=== PATIENT | female | born 1980 | race American Indian/Alaskan Native ===

== ENCOUNTER 2016-07-06 18:42 | Emergency (ER) | payer OTHER ==
[2016-07-06 19:38] VITALS: TEMP 98.6
--- NOTE | 2016-07-06 20:14 | C.PDOC ---
History Of Present Illness A 36 year old female presents to the emergency room with complaints of thick white vaginal discharge with vaginal itching for 1 week. Patient reports that she started using medications a few a days ago with no relief. Patient also notes an intermittent itchy patchy discoloration to the face over the past 2 weeks. Patient states that she use an anti-fungal cream without relief. Patient denies abdominal pain, dysuria, hematuria, frequency, back pain, incontinence, fever, chills, nausea, vomiting, diarrhea, or any other complaints. Time Seen by Provider: 07/06/16 19:43 Chief Complaint (Nursing): Female Genitourinary History Per: Patient History/Exam Limitations: no limitations Onset/Duration Of Symptoms: Other (1 week) Current Symptoms Are (Timing): Still Present Severity: Mild Quality Of Discomfort: denies: Gas Associated Symptoms: denies: Fever, Chills, Nausea, Vomiting, Back Pain, Urinary Symptoms Alleviating Factors: None Recent travel outside of the [place]: No Past Medical History Reviewed: Historical Data, Nursing Documentation, Vital Signs Vital Signs: Last Vital Signs Temp 98.6 F 07/06/16 19:35 Pulse 85 07/06/16 20:15 Resp 18 07/06/16 20:15 BP 134/78 07/06/16 20:15 Pulse Ox 98 07/06/16 21:02 - Medical History PMH: Anemia, Anxiety, Asthma, Depression, Deep Vein Thrombosis, HTN (per old chart but pt denies), Migraine, Pneumonia, Pulmonary Embolism Denies: Chronic Kidney Disease Surgical History: Appendectomy, Endoscopy - [facility] Procedures EXCIS LES TENDON SHEATH (03/31/13) LAPAROSCOPIC CECECTOMY (02/12/14) OTH INCIDENT APPENDECTOMY (02/12/14) Family History: States: Unknown Family Hx - Social History Hx Tobacco Use: No Hx Alcohol Use: Yes Hx Substance Use: No - Immunization History Hx Tetanus Toxoid Vaccination: No Hx Influenza Vaccination: Yes Hx Pneumococcal Vaccination: Yes (2012) Review Of Systems Except As Marked, All Systems Reviewed And Found Negative. Constitutional: Negative for: Fever, Chills Gastrointestinal: Negative for: Nausea, Vomiting, Abdominal Pain, Diarrhea Genitourinary: Positive for: Vaginal Discharge, Other (Vaginal itching). Negative for: Dysuria, Frequency, Incontinence, Hematuria Musculoskeletal: Negative for: Back Pain Skin: Positive for: Other (Itchy patchy discoloration to the face) Physical Exam - Physical Exam Appears: Well, Non-toxic Skin: No Normal Color (Scattered hyperpigmented patches, noticed around upper lip, eyebrow, and left cheek.) Eye(s): bilateral: Normal Inspection, PERRL Respiratory: No Stridor, No Wheezing Gastrointestinal/Abdominal: Soft, No Tenderness, No Guarding, No Rebound Back: No CVA Tenderness, No Vertebral Tenderness Pelvic: Vaginal Discharge (Thick white discharge at vaginal vault.), No Cervical Motion Tenderness, No Adnexal Tenderness, Other ( Vulvar erythema and irritation.) Extremity: Normal ROM, No Tenderness Neurological/Psych: Oriented x3, Normal Speech, Normal Motor, Normal Sensation ED Course And Treatment O2 Sat by Pulse Oximetry: 98 Medical Decision Making Medical Decision Making: Impression: A 36 year old female with thick white vaginal discharge and vaginal itching. Thick white vaginal discharge and scattered hyper-pigmented patches found on PE. Progress Notes: Patient was given prescriptions for Diflucan and a cream. Patient instructed to take medication as directed and follow up with CHANGE MANAGEMENT MANAGER within a few days. Disposition - Disposition Disposition: HOME/ ROUTINE Disposition Time: 20:10 Condition: GOOD Additional Instructions: Please follow up with CHANGE MANAGEMENT MANAGER Take meds as directed Return to ER if worse Prescriptions: Hydrocortisone 1% Cream [Cortizone 1% Cream] 1 appl TP BID #1 tube Fluconazole [Diflucan] 150 mg PO ONCE #1 tab Instructions: Vaginitis (ED), Dermatitis (ED) - Clinical Impression Clinical Impression: Vaginal candidiasis, Dermatitis - Scribe Statement The provider has reviewed the documentation as recorded by the Shashank Nunn All medical record entries made by the Shashank were at my direction and personally dictated by me. I have reviewed the chart and agree that the record accurately reflects my personal performance of the history, physical exam, medical decision making, and the department course for this patient. I have also personally directed, reviewed, and agree with the discharge instructions and disposition.
[2016-07-06 20:16] VITALS: BP 134/78; PULSE 85; RESP 18
[2016-07-06 20:17] VITALS: O2SAT 98
== END 2016-07-06 20:21 | disposition home or self-care (01) ==
LOC: C.ER 18:42
DX: B37.3 Candidiasis of vulva and vagina (principal); L30.9 Dermatitis, unspecified

== ENCOUNTER 2018-01-05 09:59 | Emergency (ER) | payer OTHER ==
[2018-01-05 09:59] VITALS: BMI 54.7
[2018-01-05 10:16] VITALS: RESP 18; O2SAT 98
--- NOTE | 2018-01-05 10:27 | C.PDOC ---
Addendum entered and electronically signed by Leticia Cantu PA-C 01/06/18 17:54: Original Note: History Of Present Illness 37 year old female 12 weeks 6 days with a history of pulmonary embolism and deep vein thrombosis presents to the ED for evaluation of lower abdominal pain for 4 days. Patient notes the pain has worsened since yesterday, has an appointment with Dr. Burk tomorrow, and has been recently switched from coumadin to eliquis due to her . : 2 Para:0 Aborto: 1 Denies fever, back pain, vaginal bleeding, vaginal discharge, urinary symptoms, and any other associated symptoms. Time Seen by Provider: 01/05/18 10:21 History Per: Patient History/Exam Limitations: no limitations Onset/Duration Of Symptoms: Days Current Symptoms Are (Timing): Still Present Pain Scale Rating Of: 6 Location Of Pain/Discomfort: Suprapubic Quality Of Discomfort: Sharp Past Medical History Reviewed: Historical Data, Nursing Documentation, Vital Signs Vital Signs: Last Vital Signs Temp 99.3 F 01/05/18 10:15 Pulse 90 01/05/18 10:15 Resp 18 01/05/18 10:15 BP 136/87 01/05/18 10:15 Pulse Ox 98 01/05/18 10:15 - Medical History PMH: Anemia, Anxiety, Asthma, Depression, Deep Vein Thrombosis (britt leg), HTN (per old chart but pt denies), Migraine, Peripheral Edema (britt lung), Pneumonia, Pulmonary Embolism, Sexually Transmitted Disease (HSV II) Denies: Chronic Kidney Disease Surgical History: Appendectomy, Endoscopy - [facility] Procedures EXCIS LES TENDON SHEATH (03/31/13) LAPAROSCOPIC CECECTOMY (02/12/14) OTH INCIDENT APPENDECTOMY (02/12/14) Family History: States: Unknown Family Hx, Diabetes, Hypertension - Social History Hx Tobacco Use: No Hx Alcohol Use: No Hx Substance Use: No - Immunization History Hx Tetanus Toxoid Vaccination: No Hx Influenza Vaccination: No Hx Pneumococcal Vaccination: No Review Of Systems Constitutional: Negative for: Fever Gastrointestinal: Positive for: Abdominal Pain (lower ) Genitourinary: Negative for: Vaginal Discharge, Vaginal Bleeding, Other (urinary symptoms.) Musculoskeletal: Negative for: Back Pain Physical Exam - Physical Exam Appears: Well, Other (obese.) Skin: Normal Color, Warm, Dry Head: Atraumatic, Normacephalic Oral Mucosa: Moist Neck: Normal ROM, Supple Chest: Symmetrical, No Deformity Cardiovascular: Rhythm Regular, No Murmur Respiratory: Normal Breath Sounds, No Rales, No Rhonchi, No Wheezing Gastrointestinal/Abdominal: Normal Exam, Soft, Tenderness (to the suprabupic region.) Back: Normal Inspection, No CVA Tenderness Extremity: Normal ROM (x4) Neurological/Psych: Oriented x3, Normal Speech Gait: Steady ED Course And Treatment - Laboratory Results Result Diagrams: 01/05/18 10:59 01/05/18 10:59 O2 Sat by Pulse Oximetry: 98 (RA) Pulse Ox Interpretation: Normal - CT Scan/US OB US Other Rad Studies (CT/US): Read By Radiologist CT/US Interpretation: Findings: Examination limited by habitus. Uterus measures approximately 15.0 x 9.0 x 5.9 cm. Anteverted. Cervix length measures 3.2 cm. There is a single intrauterine fetus present. The gestational sac measures 5.9 cm and is compatible with a gestational age of 12 weeks 0 days. The crown-rump length measures 7.1 cm and is compatible with a gestational age of 13 weeks 2 days. There is heart motion which measured 158.8 BPM. Bilateral ovaries are not visualized. Impression: Examination limited by habitus. Live single intrauterine with estimated gestational age 12 weeks 0 days by gestational sac calculation and 13 weeks 2 days by crown-rump length calculation. heart rate 158.8 bpm. Advise an anomaly screen at 16-18 weeks gestational age Medical Decision Making Medical Decision Making: Impression: UTI Plan/Orders: --Blood sent. --Urine culture. --Urine HCG. --OB US. Reassessments: US viewed by me. Patient stable for discharge home. Disposition Counseled Patient/Family Regarding: Diagnosis, Need For Followup - Disposition Disposition: HOME/ ROUTINE Disposition Time: 13:18 Condition: STABLE Additional Instructions: TAKE TYLENOL FOR PAIN NEEDED FOLLOW UP WITH YOUR OB Instructions: Round Ligament Pain Forms: [facility] (Upper Sorbian) - POA Present On Arrival: None - Clinical Impression Clinical Impression: Pelvic pain during - PA / FAMILY SERVICES WORKER / Resident Statement MD/DO has reviewed & agrees with the documentation as recorded. - Scribe Statement The provider has reviewed the documentation as recorded by the Scribe (Lissett gracia) All medical record entries made by the Scribe were at my direction and personally dictated by me. I have reviewed the chart and agree that the record accurately reflects my personal performance of the history, physical exam, medical decision making, and the department course for this patient. I have also personally directed, reviewed, and agree with the discharge instructions and disposition.
[2018-01-05 11:08] LABS: BASO % 0.4 % (0.0-2.0); EOS # 0.4 K/uL (0.0-0.7); EOS % 5.3 % (0.0-4.0); HEMOGLOBIN 13.2 g/dL (11.0-16.0); LYMPH # 2.5 K/uL (1.0-4.3); LYMPH % 35.1 % (20.0-40.0); MEAN CELL VOLUME 69.8 fL (81.0-99.0); MEAN CORPUSCULAR HEMOGLOBIN 24.1 pg (27.0-31.0); MEAN CORPUSCULAR HGB CONC 34.6 g/dL (33.0-37.0); MEAN PLATELET VOLUME 8.8 fL (7.2-11.7); MONO # 0.4 K/uL (0.0-0.8); MONO % 4.9 % (0.0-10.0); NEUT # 3.9 K/uL (1.8-7.0); NEUT % 54.3 % (50.0-75.0); NRBC % 0.1 % (0.0-2.0); RBC 5.46 Mil/uL (3.80-5.20); RED CELL DISTRIBUTION WIDTH 17.4 % (11.5-14.5); WHITE BLOOD COUNT 7.2 K/uL (4.8-10.8)
[2018-01-05 11:14] LABS: HCG,QUALITATIVE URINE POSITIVE (NEGATIVE)
[2018-01-05 11:23] LABS: ALB/GLOB RATIO 1.1 (1.0-2.1); ALBUMIN 3.1 g/dL (3.5-5.0); ALT/SGPT 15 U/L (9-52); AST/SGOT 13 U/L (14-36); BLOOD UREA NITROGEN 6 mg/dL (7-17); CALCIUM 7.7 mg/dl (8.6-10.4); GFR NON-AFRICAN AMERICAN > 60
[2018-01-05 11:27] LABS: SQUAMOUS EPITHIAL 3 /hpf (0-5); URINE BILIRUBIN NEGATIVE (NEGATIVE); URINE BLOOD 1+ (NEGATIVE); URINE CLARITY Clear (Clear); URINE COLOR Amber (YELLOW); URINE GLUCOSE (UA) NORMAL (Normal); URINE LEUKOCYTE ESTERASE NEG Leu/uL (Negative); URINE PROTEIN NEGATIVE (NEGATIVE); URINE UROBILINOGEN NORMAL mg/dL (0.2-1.0)
[2018-01-05] MEDS ORDERED: Potassium Chloride 20 mEq ER Tab PO STA (13:08)
--- NOTE | 2018-01-05 13:09 | US ---
Indication: 12 weeks with pain lower abdomen Comparison: Transvaginal pelvic ultrasound performed 03/17/17 Technique: Transabdominal pelvic ultrasound. Findings: Examination limited by habitus. Uterus measures approximately 15.0 x 9.0 x 5.9 cm. Anteverted. Cervix length measures 3.2 cm. There is a single intrauterine fetus present. The gestational sac measures 5.9 cm and is compatible with a gestational age of 12 weeks 0 days. The crown-rump length measures 7.1 cm and is compatible with a gestational age of 13 weeks 2 days. There is heart motion which measured 158.8 BPM. Bilateral ovaries are not visualized. Impression: Examination limited by habitus. Live single intrauterine with estimated gestational age 12 weeks 0 days by gestational sac calculation and 13 weeks 2 days by crown-rump length calculation. heart rate 158.8 bpm. Advise an anomaly screen at 16-18 weeks gestational age
[2018-01-05] MEDS ORDERED: Potassium Chloride 20 mEq ER Tab PO ONE (13:16)
[2018-01-05 13:39] VITALS: BP 130/86; PULSE 82; TEMP 97.8
== END 2018-01-05 13:38 | disposition home or self-care (01) ==
LOC: C.ER 09:59
DX: O26.891 Other specified pregnancy related conditions, first trimester (principal); R10.2 Pelvic and perineal pain; Z3A.13 13 weeks gestation of pregnancy

== ENCOUNTER 2018-01-21 06:43 | Emergency (ER) | payer OTHER ==
[2018-01-21 06:44] VITALS: BMI 54.7
[2018-01-21 06:52] VITALS: O2SAT 100
[2018-01-21 07:20] LABS: SQUAMOUS EPITHIAL 8 /hpf (0-5); URINE BACTERIA RARE (<OCC); URINE BILIRUBIN NEGATIVE (NEGATIVE); URINE BLOOD 1+ (NEGATIVE); URINE CLARITY Hazy (Clear); URINE COLOR Yellow (YELLOW); URINE GLUCOSE (UA) NORMAL (Normal); URINE LEUKOCYTE ESTERASE NEG Leu/uL (Negative); URINE PROTEIN NEGATIVE (NEGATIVE); URINE UROBILINOGEN NORMAL mg/dL (0.2-1.0)
--- NOTE | 2018-01-21 07:27 | C.PDOC ---
History Of Present Illness 37 y/o female with history of PE, DVT and Asthma, currently 15 weeks presents to ED with c/o low abdominal pain 5/10 for 1 week. Patient states initially pain was on left side now bilateral and worse with movement. Patient also c/o pain to back of right leg, was taking eliquis and recently taken off started on Lovenox. Patient denies fever, chills, nausea, vomiting, dysuria, vaginal bleeding or any other complaints at this time. Time Seen by Provider: 01/21/18 07:12 Chief Complaint (Nursing): Abdominal Pain History Per: Patient History/Exam Limitations: no limitations Onset/Duration Of Symptoms: Days Current Symptoms Are (Timing): Still Present Past Medical History Reviewed: Historical Data, Nursing Documentation, Vital Signs Vital Signs: Last Vital Signs Temp 98.7 F 01/21/18 06:46 Pulse 95 H 01/21/18 06:46 Resp 20 01/21/18 06:46 BP 115/76 01/21/18 06:46 Pulse Ox 100 01/21/18 06:46 - Medical History PMH: Anemia, Anxiety, Asthma, Depression, Deep Vein Thrombosis (britt leg), HTN (per old chart but pt denies), Migraine, Peripheral Edema (britt lung), Pneumonia, Pulmonary Embolism, Sexually Transmitted Disease (HSV II) Surgical History: Appendectomy, Cholecystectomy, Endoscopy - [facility] Procedures EXCIS LES TENDON SHEATH (03/31/13) LAPAROSCOPIC CECECTOMY (02/12/14) OTH INCIDENT APPENDECTOMY (02/12/14) Family History: States: Diabetes, Hypertension - Social History Hx Tobacco Use: No Hx Alcohol Use: No Hx Substance Use: No - Immunization History Hx Tetanus Toxoid Vaccination: No Hx Influenza Vaccination: No Hx Pneumococcal Vaccination: No Review Of Systems Constitutional: Negative for: Fever, Chills Gastrointestinal: Positive for: Abdominal Pain. Negative for: Nausea, Vomiting, Diarrhea Genitourinary: Negative for: Dysuria, Vaginal Bleeding Musculoskeletal: Positive for: Leg Pain Physical Exam - Physical Exam Appears: Non-toxic, No Acute Distress Skin: Warm, Dry, No Rash Head: Atraumatic, Normacephalic Eye(s): bilateral: Normal Inspection Oral Mucosa: Moist Neck: Supple Cardiovascular: Rhythm Regular Respiratory: Normal Breath Sounds, No Rales, No Rhonchi, No Wheezing Gastrointestinal/Abdominal: Soft, No Tenderness, No Guarding, No Rebound, Other (Obese abdomen) Back: No CVA Tenderness Extremity: Normal ROM, No Calf Tenderness, Capillary Refill (<2 seconds) Neurological/Psych: Oriented x3, Normal Speech, Normal Cognition ED Course And Treatment O2 Sat by Pulse Oximetry: 100 (RA) Pulse Ox Interpretation: Normal Disposition - Disposition Disposition Time: 08:03 Condition: STABLE Forms: [facility] (Estonian) - Clinical Impression Clinical Impression: Abdominal pain - Scribe Statement The provider has reviewed the documentation as recorded by the Scribe Jocelyn Urena All medical record entries made by the Scribe were at my direction and personally dictated by me. I have reviewed the chart and agree that the record accurately reflects my personal performance of the history, physical exam, medical decision making, and the department course for this patient. I have also personally directed, reviewed, and agree with the discharge instructions and disposition. Physician Patient Turnover Patient Signed Over To: Wilver Aguirre Handoff Comments: patient 15 weeks , , hx of DVT/PE c/o abdominal pain and pain to right popliteal fossa. Pending pelvic US and RLE doppler.
--- NOTE | 2018-01-21 08:51 | US ---
Date of service: 01/21/2018 PROCEDURE: OB Pelvic Ultrasound HISTORY: 15 weeks with pain COMPARISON: None available. FINDINGS: UTERUS: There is a single live intrauterine fetus in cephalic presentation. BPD: 3.0 through cm corresponding to 15 weeks and 4 days of gestational age. HC: 10.43 cm corresponding to 15 weeks and 0 day of gestational age. AC: 8.66 cm corresponding to 15 weeks and 0 day of gestational age. FL: 1.45 cm corresponding to 14 weeks and 2 days of gestational age. age (Ultrasound estimated): 15 weeks and 0 day Date of delivery (Ultrasound estimated) : 07/15/2018 Heart rate: 140 bpm. Maylin-gestational hemorrhage: None. Placenta is anterior. CERVIX: Long and closed. No cervical abnormality seen. Cervical length measures 3.42 cm. RIGHT OVARY: Measures 4.5 x 3.2 x 4.1 cm. No mass. Normal flow. LEFT OVARY: Measures 4.2 x 2.5 x 4.7 cm. No mass. Normal flow. FREE FLUID: None. OTHER FINDINGS: None. IMPRESSION: Single live intrauterine fetus in cephalic presentation with mean gestational age of 15 weeks and 0 days. The estimated date of delivery by ultrasound is 07/15/2018. There is a 2 week discrepancy with the clinical dates. Clinical follow-up is advised. Please note this is a limited OB ultrasound performed on an emergent basis. Dedicated anatomic survey is advised.
[2018-01-21 09:12] VITALS: BP 128/75; PULSE 71; RESP 16; TEMP 98.6
--- NOTE | 2018-01-25 18:30 | VASCLAB ---
Date of service: 01/21/2018 PROCEDURE: Right Lower Extremity Venous Duplex Exam. HISTORY: hx of DVT PRIORS: None. TECHNIQUE: Right common femoral, femoral, popliteal and posterior tibial, peroneal and great saphenous veins were evaluated. Flow was assessed with color Doppler, compressibility, assessment of phasic flow and augmentation response. Report prepared by Lawrence Silvestre, ORI, RVT FINDINGS: RIGHT: 1. Common Femoral Vein: 1.1. Compressibility - Fully compressible: Thrombus - None: Flow - Phasic: Augmentation -Normal: Reflux - None. 2. Femoral Vein: 2.1. Compressibility - Fully compressible: Thrombus - None: Flow - Phasic: Augmentation -Normal: Reflux - None. 3. Popliteal Vein: 3.1. Compressibility - Fully compressible: Thrombus - None: Flow - Phasic: Augmentation -Normal: Reflux - None. 4. Posterior Tibial Vein: 4.1. Compressibility - Fully compressible: Thrombus - None: Flow - Phasic: Augmentation -Normal: Reflux - None. 5. Peroneal Vein: 5.1. Compressibility - Fully compressible: Thrombus - None: Flow - Phasic: Augmentation -Normal: Reflux - None. 6. Great Saphenous Vein: 6.1. Compressibility - Fully compressible: Thrombus -None: Flow - Phasic: Augmentation - Normal: Reflux - None. OTHER FINDINGS: Flow noted in the fully compressible left common femoral vein. IMPRESSION: No evidence of deep or superficial vein thrombosis of the right lower extremity with excellent venous flow. Normal valve function noted of the right side. Normal venous flow noted in the left common femoral vein.
== END 2018-01-21 10:40 | disposition home or self-care (01) ==
LOC: C.ER 06:43
DX: O26.892 Other specified pregnancy related conditions, second trimester (principal); K59.00 Constipation, unspecified; R10.30 Lower abdominal pain, unspecified; Z3A.15 15 weeks gestation of pregnancy